=== PATIENT | female | born 1990 | race Caucasian/White ===

== ENCOUNTER → 2017-06-25 | Outpatient (CLI) | payer OTHER ==
[~2017-06-25] MED LIST: PRLSR20 PO
== END | disposition home or self-care (01) ==
LOC: C.PAPS 08:16
PROVIDERS: ATTEND Physician Assistant
DX: Z12.4 Encounter for screening for malignant neoplasm of cervix (principal); R87.612 Low grade squamous intraepithelial lesion on cytologic smear of cervix (LGSIL)

== ENCOUNTER → 2017-06-25 | Outpatient (CLI) | payer OTHER ==
[2017-06-28 14:28] LABS: CHLAMYDIA TRACH RNA*** NOT DETECTED (NOT DETECTED); GC (NEIS GONORRHOEAE)RNA** NOT DETECTED (NOT DETECTED)
== END | disposition home or self-care (01) ==
LOC: C.LABSPEC 17:42
PROVIDERS: ATTEND Physician Assistant
DX: Z12.4 Encounter for screening for malignant neoplasm of cervix (principal); N89.8 Other specified noninflammatory disorders of vagina

== ENCOUNTER → 2017-07-09 | Outpatient (CLI) | payer OTHER | END | disposition home or self-care (01) | LOC: C.PATHSPEC 17:35 | PROVIDERS: ATTEND Obstetrics & Gynecology | DX: R87.612 Low grade squamous intraepithelial lesion on cytologic smear of cervix (LGSIL) (principal) ==

== ENCOUNTER → 2017-08-27 | Outpatient (CLI) | payer OTHER ==
[2017-08-27 13:41] LABS: BASO % 0.6 %; BASO ABS # 0.03 K/uL (0-0.2); COMPLETE YES; EOS % 2.4 %; HEMATOCRIT 41.2 % (37-47); IG% 0.2 %; LYMPH % 33.2 %; LYMPH ABS # 1.67 K/uL (1.2-3.4); MEAN CELL VOLUME 94.1 fL (80-100); MEAN CORPUSCULAR HEMOGLOBIN 31.1 pg (25-34); MEAN PLATELET VOLUME 9.8 fL (7.4-10.4); NEUT % 55.6 %; PLATELET COUNT 280 K/uL (130-400); RED BLOOD COUNT 4.38 M/uL (4.2-5.4); WHITE BLOOD COUNT 5.03 K/uL (4.8-10.8)
[2017-08-27 14:15] LABS: ALB/GLOB RATIO 1.4 (0.9-2); ALKALINE PHOSPHATASE 55 U/L (45-117); ALT/SGPT 12 U/L (12-78); AST/SGOT 10 U/L (15-37); BLOOD UREA NITROGEN 6 mg/dl (7-18); BUN/CREATININE RATIO 8.6 (10-20); CALCIUM 8.9 mg/dl (8.5-10.1); CARBON DIOXIDE 30 mmol/L (21-32); CHLORIDE 106 mmol/L (98-107); GLUCOSE 95 mg/dl (70-99); POTASSIUM 4.2 mmol/L (3.5-5.1); SODIUM 139 mmol/L (136-145)
[2017-08-27 14:23] LABS: THYROID STIMULATING HORMONE 0.663 uIu/ml (0.300-4.500)
== END | disposition home or self-care (01) ==
LOC: C.LABBC 11:33
PROVIDERS: ATTEND Physician Assistant
DX: F41.9 Anxiety disorder, unspecified (principal)

== ENCOUNTER → 2017-11-10 | Outpatient (CLI) | payer OTHER ==
[2017-11-12 01:27] LABS: CHLAMYDIA TRACH RNA*** NOT DETECTED (NOT DETECTED); GC (NEIS GONORRHOEAE)RNA** NOT DETECTED (NOT DETECTED)
== END | disposition home or self-care (01) ==
LOC: C.LABSPEC 13:27
PROVIDERS: ATTEND Physician Assistant
DX: N89.8 Other specified noninflammatory disorders of vagina (principal)

== ENCOUNTER 2019-06-06 13:56 | Inpatient (IN) ==
[2019-06-06] MEDS ORDERED: OXYTOCIN 30 UNITS/500 ML BAG IV PRN ×2 (14:52→16:33)
--- NOTE | 2019-06-06 14:52 | History & Physical Report ---
Date of Service June 06, 2019 Assessment & Plan (1) Prolonged : admit, early labor, will arom. plan epidural and then arom as pt desires pain control. aware may need pit augmentation. labs, iv. History of Present Illness Chief Complaint: regular ctx Primary Care Provider: Kenan Gray MD 28yo at 40+wks egclarence presents to L&D with above cc. She went to office and around 130pm was noted to be 1.5cm/90% effaced by Dr. Rueda exam. Patient says she has had ctx for days and feels unwell that has not kept hydrated. She hasn't had any sleep. No rom. No vb. +FM pnc c/b 1. LGSIL on pap, colpo pp 2. CF carrier, FOB not carrier pnl rh pos, ri, gbs neg obh: g1 gynh: LGSIL, refused pap in preg, plan for pp, prior colpo in 2017, no stds pmh: esophagus dilation x 2 psh: endoscopy, wisdom teeth Allergies Allergy/AdvReac Type Severity Reaction Status Date / Time amoxicillin Allergy Unknown throat Verified 06/06/19 14:32 swelled clavulanic acid Allergy Unknown throat Verified 06/06/19 14:32 swelled Home Medications Home Medications Medication Instructions Recorded Confirmed Type vit-iron fum-folic ac 1 tab PO DAILY 06/05/19 06/06/19 History [ Vitamin] Patient History Social History Preferred Language: Japanese Communication Ability: Effective Inspector Packer Required: No Beliefs That Will Affect Care: None marital status: Single Current Living Situation: Significant Other Other Information That Helps Us Care for You: No Feels Safe at Home: Yes Safety Concerns: Feels Safe At This Time Smoking Status: Never smoker Second Hand Exposure: No Hx Alcohol Use: No Hx Substance Use: No Physical Exam Constitutional: WD/WN, vitals as above Respiratory: normal respiratory effort, lungs clear to auscultation Cardiovascular: Rate/Rhythm: regular rate and regular rhythm Gastrointestinal (Abdomen): gravid nt, efw 7-8# Musculoskeletal: nt calves, no edema Neurologic: grossly normal Genitourinary: Manual OB Exam: + cervical dilation 3 cm, + cervical effacement 90%, + station -2 and + amniotic fluid (intact) OB Exam Monitor Tracing: + external FHT monitor used (130 mod variability, reactive, ) and + external uterine monitor used (q2-3) Results & Data Vital Signs (Past 12 Hours) Vital Signs Temp Pulse Resp BP 06/06/19 14:09 36.4 C L 20 06/06/19 14:05 82 131/90
[2019-06-06] MEDS: LACTATED RINGER'S 1,000 ML IV PRN ×3 (15:04→20:10)
[2019-06-06 15:20] LABS: Hematocrit (blood only) 40.6 % (37-47); Hemoglobin 13.4 g/dL (12.0-16.0); Mean Corpuscular Volume 84.2 fL (80-100); Mean Platelet Volume 10.7 fL (7.4-10.4); Platelet Count 271 K/uL (130-400); RDW Coefficient of Variation 14.1 % (11.5-14.5); RDW Standard Deviation 43.4 fL (36.4-46.3); Red Blood Count 4.82 M/uL (4.2-5.4); White Blood Count 19.37 K/uL (4.8-10.8)
[2019-06-06] MEDS ORDERED: BUPIVACAINE 0.25% 30 ML VIAL ONE (15:20)
[2019-06-06] MEDS ORDERED: ePHEDrine sulfate 50 MG/ML AMP ONE (15:21)
[2019-06-06] MEDS ORDERED: fentaNYL citrate 100 MCG/2 ML VIAL ONE (15:21)
[2019-06-06] MEDS ORDERED: fentaNYL 2MCG/ML ROPIV 1.25MG/ML 100 ML BAG EPI ONE (15:22)
--- NOTE | 2019-06-06 15:32 | Anesthesiology Consultation ---
Date of Service June 06, 2019 Assessment & Plan (1) Encounter for pre-operative examination: Chart Review Chart Review: Acceptable Risk for Surgery Consults Requested none ASA ASA2 Proposed Anesthesia Anesthesia Type: CSE History Height/Weight Height: 5 ft 7 in Weight: 73.028 kg Allergies Allergy/AdvReac Type Severity Reaction Status Date / Time amoxicillin Allergy Unknown throat Verified 06/06/19 14:32 swelled clavulanic acid Allergy Unknown throat Verified 06/06/19 14:32 swelled Medications Home Medications Medication Instructions Recorded Confirmed Last Taken vit-iron fum-folic ac 1 tab PO DAILY 06/06/19 06/06/19 06/04/19 08:00 [ Vitamin] Active Medications Generic Name Dose Route Start Last Admin Trade Name Freq PRN Reason Stop Dose Admin Lactated Ringer's 1,000 mls @ 125 mls/hr 06/06/19 14:52 06/06/19 15:04 Lr IV 06/08/19 14:51 999 mls/hr .Q8H PRN Administration L&D Protocol Protocol Past Medical History Medical History GERD (gastroesophageal reflux disease) DILATED X 2 History of abnormal cervical Pap smear LGSIL - COLPO 2016 Past Surgical History Surgical History History of colposcopy Social History Smoking Status: Never smoker Hx Alcohol Use: No Hx Substance Use: No substance use type: does not use Physical Exam Vital Signs Last Vital Signs Temp 36.4 C L 06/06/19 14:09 Pulse 82 06/06/19 14:05 Resp 20 06/06/19 14:09 BP 131/90 06/06/19 14:05 ENMT Mouth: no TMJ abnormality Thyromental Distance: > or= 3.5 Finger Breadths Mallampati Class: III intact dentition Neck normal visual inspection and trachea midline; neck extension not limited Respiratory normal respiratory effort Auscultation: lungs clear to auscultation bilaterally Cardiovascular Rate/Rhythm: regular rate and regular rhythm Heart Sounds: no murmur Musculoskeletal Spine: normal cervical ROM Extremities: full ROM of extremities Neurologic moves all extremities Motor/Sensory: no sensory deficit Psychiatric Orientation: alert and oriented x 3 Testing Laboratory Results 06/06/19 15:03
[2019-06-06] MEDS ORDERED: METOCLOPRAMIDE HCL 20 MG in SODIUM CHLORIDE 0.9% 50 ML IV PRN (15:55)
[2019-06-06] MEDS ORDERED: DiphenhydrAMINE HCL 50 MG/ML VIAL IV PRN (15:55)
[2019-06-06] MEDS ORDERED: PROMETHAZINE HCL 25 MG in SODIUM CHLORIDE 0.9% 50 ML IV PRN (15:55)
[2019-06-06] MEDS ORDERED: fentaNYL 2MCG/ML ROPIV 1.25MG/ML 100 ML BAG EPI PRN (15:55)
[2019-06-06] MEDS ORDERED: ePHEDrine sulfate 50 MG/ML AMP IV PRN (15:55)
[2019-06-06] MEDS ORDERED: NALOXONE HCL 1 MG in SODIUM CHLORIDE 0.9% 1000ML 1,000 ML IV PRN (15:55)
[2019-06-06] MEDS ORDERED: NALBUPHINE HCL INJ 10 MG/ML AMP IV PRN (15:55)
[2019-06-06] MEDS ORDERED: NALOXONE HCL 0.4 MG/1 ML VIAL/CARP IV PRN (15:55)
[2019-06-06] MEDS ORDERED: ONDANSETRON INJ 2 MG/ML 2 ML VIAL IV PRN (15:55)
--- NOTE | 2019-06-06 16:35 | Obstetrical Progress Note ---
Date of Service June 06, 2019 Assessment & Plan (1) Prolonged : will see how arom augments pattern. add pit if ctx do not become more regular. pt aware, meconium stained fluid reviewed. Subjective comfortable with epidural. Physical Exam Constitutional: WD/WN, vitals as above Genitourinary: Manual OB Exam: + cervical dilation 3 cm, + cervical effacement 90% and + station -2 OB Exam Monitor Tracing: + external FHT monitor used (140 mod variability) and + external uterine monitor used (q4) Results & Data Vital Signs (Past 12 Hours) Vital Signs Temp Pulse Resp BP Pulse Ox 06/06/19 16:31 66 99 06/06/19 16:26 60 97 06/06/19 16:23 62 115/72 06/06/19 16:21 59 L 97 06/06/19 16:16 76 98 06/06/19 16:11 73 98 06/06/19 16:06 76 98 06/06/19 16:03 78 123/81 06/06/19 16:01 79 119/82 98 06/06/19 15:59 74 119/83 06/06/19 15:57 73 114/78 06/06/19 15:56 72 99 06/06/19 15:55 82 117/84 06/06/19 15:53 79 124/82 06/06/19 15:51 80 119/82 99 06/06/19 15:50 90 117/88 06/06/19 15:46 89 100 06/06/19 15:41 95 H 99 06/06/19 15:36 84 100 06/06/19 15:31 83 100 06/06/19 14:09 36.4 C L 20 06/06/19 14:05 82 131/90
--- NOTE | 2019-06-06 19:52 | Obstetrical Progress Note ---
Date of Service June 06, 2019 Assessment & Plan (1) Prolonged : good cx change, c/w pit, fhts categ 1 Subjective comfortable with epidural. Physical Exam Constitutional: WD/WN, vitals as above Genitourinary: Manual OB Exam: + cervical dilation 7 cm, + cervical effacement 100% and + station 0 OB Exam Monitor Tracing: + external FHT monitor used (140 mod variability, ), + external uterine monitor used (q2-3 pit at 5), + category I and + normal FHT variability Results & Data Vital Signs (Past 12 Hours) Vital Signs Temp Pulse Resp BP Pulse Ox 06/06/19 19:46 64 100 06/06/19 19:41 82 100 06/06/19 19:39 70 123/67 06/06/19 19:36 69 99 06/06/19 19:31 83 100 06/06/19 19:26 71 98 06/06/19 19:22 66 116/76 06/06/19 19:21 70 98 06/06/19 19:16 65 98 06/06/19 19:11 67 97 06/06/19 19:08 79 122/72 06/06/19 19:06 91 H 99 06/06/19 19:05 37.0 C 18 06/06/19 19:01 70 98 06/06/19 18:56 63 97 06/06/19 18:52 66 110/72 06/06/19 18:51 67 97 06/06/19 18:46 61 97 06/06/19 18:41 63 97 06/06/19 18:38 67 112/74 06/06/19 18:36 64 97 06/06/19 18:31 79 97 06/06/19 18:26 68 97 06/06/19 18:22 70 108/80 06/06/19 18:21 63 97 06/06/19 18:16 70 97 06/06/19 18:15 18 06/06/19 18:11 67 98 06/06/19 18:07 65 115/75 06/06/19 18:06 66 98 06/06/19 18:01 69 99 06/06/19 18:00 20 06/06/19 17:56 69 113/63 99 06/06/19 17:51 66 98 06/06/19 17:46 60 97 06/06/19 17:45 18 06/06/19 17:41 63 98 06/06/19 17:37 62 113/76 06/06/19 17:36 68 99 06/06/19 17:31 64 98 06/06/19 17:30 20 06/06/19 17:26 62 98 06/06/19 17:22 62 117/78 06/06/19 17:21 63 99 06/06/19 17:16 72 99 06/06/19 17:15 18 06/06/19 17:11 75 98 06/06/19 17:07 58 L 122/81 06/06/19 17:06 61 99 06/06/19 17:01 63 100 06/06/19 17:00 18 06/06/19 16:56 64 99 06/06/19 16:53 62 119/77 06/06/19 16:51 65 98 06/06/19 16:46 62 98 06/06/19 16:45 20 06/06/19 16:41 66 98 06/06/19 16:37 61 110/72 06/06/19 16:36 63 99 06/06/19 16:31 66 99 06/06/19 16:30 20 06/06/19 16:26 60 97 06/06/19 16:23 62 115/72 06/06/19 16:21 59 L 97 06/06/19 16:16 76 98 06/06/19 16:15 20 06/06/19 16:11 73 98 06/06/19 16:06 76 20 98 06/06/19 16:03 78 123/81 06/06/19 16:01 79 119/82 98 06/06/19 15:59 74 119/83 06/06/19 15:57 73 114/78 06/06/19 15:56 72 99 06/06/19 15:55 82 117/84 06/06/19 15:53 79 124/82 06/06/19 15:51 80 119/82 99 06/06/19 15:50 90 117/88 06/06/19 15:46 89 100 06/06/19 15:41 95 H 99 06/06/19 15:36 84 100 06/06/19 15:31 83 100 06/06/19 14:09 36.4 C L 20 06/06/19 14:05 82 131/90
[2019-06-07] MEDS ORDERED: METHYLERGONOVINE MALEATE 0.2 MG/ML AMP ONE (00:38)
[2019-06-07] MEDS ORDERED: TRANEXAMIC ACID 100 MG/ML 10 ML VIAL ONE (00:38)
[2019-06-07] MEDS ORDERED: BENZOCAINE 20% AER SPR 82.5 GM CAN EXT PRN (00:52)
[2019-06-07] MEDS ORDERED: HYDROCORTISONE ACETATE 25 MG SUPP PR PRN (00:52)
[2019-06-07] MEDS ORDERED: OXYTOCIN 30 UNITS/500 ML BAG IV PRN (00:52)
[2019-06-07] MEDS ORDERED: METHYLERGONOVINE MALEATE 0.2 MG/ML AMP IM ONE (00:52)
[2019-06-07] MEDS ORDERED: SUPERCREAM 0.870% 15 GM JAR EXT PRN (00:52)
[2019-06-07] MEDS ORDERED: ACETAMINOPHEN 325 MG TAB PO PRN (00:52)
[2019-06-07] MEDS ORDERED: OXYCODONE/ACETAMINOPHEN 5mg/325mg TAB PO PRN (00:52)
[2019-06-07] MEDS ORDERED: miSOPROStol 200 MCG TAB PR ONE (00:52)
--- NOTE | 2019-06-07 01:01 | Delivery Summary ---
DATE OF OPERATION: 06/07/2019 The patient dilated to complete and pushed to deliver a viable male , Apgars 8 and 9 via over intact perineum. Mouth and nose were suctioned at the perineum. The shoulders and body delivered with ease. The was vigorous and cried at . Cord clamped at 30 seconds of life and infant to maternal abdomen. Cord was then doubly clamped and cut. Cord blood obtained. Placenta delivered spontaneously and intact, 3-vessel cord. Hemostasis inadequate with dilute Pitocin and uterine massage and bimanual massage, uterus swept x2 with no retained products noted. The bladder was drained under sterile conditions for approximately 120 mL of urine. The bleeding continued and therefore 800 mcg of rectal Cytotec was administered followed by 0.2 IM of Methergine after the blood pressure was checked. The uterus again was not well contracted and therefore tranexamic acid 1 g was administered. The uterine bleeding improved. The cervix and sulci were intact. Two labial lacerations and a vaginal laceration were repaired with 3-0 and 4-0 Vicryl in interrupted [id number] sutures. Hemostasis was then adequate. Mother and baby were stable in recovery. Estimated blood loss 600 mL. I attest to the content of the Intraoperative Record and any orders documented therein. Any exceptions are noted below. MTDD
[2019-06-07] MEDS: IBUPROFEN 600 MG TAB PO PRN ×5 (02:36→20:08)
--- NOTE | 2019-06-07 03:40 | Anesthesia Procedure Note ---
Date of Service June 07, 2019 Anesthesia Post Epidural Note Vital Signs Vital Signs: Temp Pulse Resp BP Pulse Ox 39.0 C H 81 18 116/70 97 06/07/19 02:30 06/07/19 02:53 06/07/19 02:22 06/07/19 02:53 06/07/19 01:46 Notes Mental Status: alert / awake / arousable Nausea / Vomiting: adequately controlled Pain: adequately controlled Airway Patency, RR, SpO2: stable & adequate BP & HR: stable & adequate Hydration State: stable & adequate Neuraxial Anesthesia: was administered and sensory block is resolving Anesthetic Complications: no major complications apparent and Pt Satisfied with anesthetic care Epidural: Removed without complications and With tip intact
[2019-06-07] MEDS ORDERED: TRANEXAMIC ACID 1,000 MG in 0.9 % SODIUM CHLORIDE 100 ML IV ONE (06:30)
[2019-06-07 08:21] LABS: Hematocrit (blood only) 32.1 % (37-47); Hemoglobin 10.4 g/dL (12.0-16.0)
[2019-06-07] MEDS: DOCUSATE SODIUM 100 MG CAP PO SCH ×2 (08:49→20:08)
[2019-06-08 05:32] LABS: Hematocrit (blood only) 29.9 % (37-47); Hemoglobin 9.6 g/dL (12.0-16.0)
--- NOTE | 2019-06-08 06:01 | Obstetrical Progress Note ---
Date of Service <Leandro Singer MD - Last Filed: 06/08/19 07:04> June 08, 2019 Assessment & Plan <Leandro Singer MD - Last Filed: 06/08/19 07:04> Day #:: 1 (28-year-old status post vaginal delivery at 40+6 - Rh immune, Blood Type O+ - Feels well today. Eating well, voiding well, ambulating well. - Pain well controlled with Motrin. - After discharge will have [address] Welsh.) Subjective <Leandro Singer MD - Last Filed: 06/08/19 07:04> Ambulation: ambulating normally Voiding: no voiding problems Passing Gas:: Yes Diet Tolerance:: regular diet Lochia:: Moderate (soaking through a pad every two hours, worse when standing up, overall seems to be improving) Feeding Type:: breast feeding Current Pain Level(1-10): 2 (controlled with Motrin) Physical Exam <Leandro Singer MD - Last Filed: 06/08/19 07:04> OB PE General: Alert, oriented. No acute distress. Cardiac: Regular rate and rhythm, no murmurs/rubs/gallops. Respiratory: Clear to auscultation anterior and posteriorly, no wheezes/rales/rhonchi. No increased work of breathing. Symmetrical chest rise. No respiratory distress. Abdomen: Soft, nontender, nondistended. Bowel sounds present. Uterus: Uterine fundus firm, palpable 1 cm below umbilicus. Lower Extremities: No lower extremity edema or swelling. No deep calf pain. Rustam's negative bilaterally. OB ROS Denies fever, sweats felt cold and shaky overnight Denies shortness of breath, difficulty breathing, chest pain, palpitations, chest pressure. Denies breast pain. Denies dysuria. Denies headache. Results & Data <Leandro Singer MD - Last Filed: 06/08/19 07:04> Vital Signs (Past 12 Hours) Vital Signs Temp Pulse Resp BP 06/07/19 23:15 36.5 C 84 18 104/71 06/07/19 19:55 36.8 C 70 18 100/68 Hgb 9.6 <Danial Gale Jr, MD, FACOG - Last Filed: 06/08/19 07:11> Co-Signing Physician Notes Resident Physician Supervision Note: I was present with Dr. Sherman during the history and exam. I discussed the case with the resident and agree with the findings and plan as documented in the note. Any exceptions or clarifications are listed here: Patient hemodynamically stable. Pt desires d/c, instructions given. Documented By: Danial Gale Jr, MD, FACOG
[2019-06-08] MEDS: DOCUSATE SODIUM 100 MG CAP PO SCH ×2 (07:59→21:41)
[2019-06-08] MEDS: IBUPROFEN 600 MG TAB PO PRN ×2 (07:59→15:48)
[2019-06-08] MEDS ORDERED: DIPHTHERIA/TETANUS/PERTUSSIS 0.5 ML SYR/VIAL IM ONE (09:00)
--- NOTE | 2019-06-09 05:17 | Obstetrical Progress Note ---
Date of Service <Leandro Singer MD - Last Filed: 06/09/19 06:47> June 09, 2019 Assessment & Plan <Leandro Singer MD - Last Filed: 06/09/19 06:47> Day #:: 2 ([28-year-old s/p VD @40+6] -PPD2# -with post bleeding [id number], H&H stable - Rubella immune, Blood Type O+ - Feels well today. Eating well, voiding well, ambulating well. - Pain well controlled. - Routine post care - After discharge will have [address] Park.) Subjective <Leandro Singer MD - Last Filed: 06/09/19 06:47> Ambulation: ambulating normally Voiding: no voiding problems Passing Gas:: Yes Diet Tolerance:: regular diet Lochia:: Small Feeding Type:: breast feeding Current Pain Level(1-10): 0 Physical Exam <Leandro Singer MD - Last Filed: 06/09/19 06:47> OB PE General: Alert, oriented. No acute distress. Cardiac: Regular rate and rhythm, no murmurs/rubs/gallops. Respiratory: Clear to auscultation anterior and posteriorly, no wheezes/rales/rhonchi. No increased work of breathing. Symmetrical chest rise. No respiratory distress. Abdomen: Soft, nontender, nondistended. Bowel sounds present. Uterus: Uterine fundus firm, palpable 2 cm below umbilicus. Lower Extremities: No lower extremity edema or swelling. No deep calf pain. Rustam's negative bilaterally. OB ROS Denies fever Denies shortness of breath, difficulty breathing, chest pain, palpitations, chest pressure. Denies breast pain. Denies dysuria. Denies headache. Results & Data <Leandro Singer MD - Last Filed: 06/09/19 06:47> Vital Signs (Past 12 Hours) Vital Signs Temp Pulse Resp BP Pulse Ox 06/08/19 23:20 36.8 C 105 H 18 113/75 98 <Adali Park DO - Last Filed: 06/09/19 07:03> Co-Signing Physician Notes Resident Physician Supervision Note: I was present during the history and exam. I discussed the case with the resident and agree with the findings and plan as documented in the note. Any exceptions or clarifications are listed here: PPD#2 doing well. DC home. Teaching done. Documented By: Adali Park, DO
[2019-06-09] MEDS: DOCUSATE SODIUM 100 MG CAP PO SCH (08:33)
== END 2019-06-09 11:15 | disposition home or self-care (01) | DRG 807 ==
LOC: OPB 13:56 → 4S1 13:58 → 4S2 06-07 03:15

== ENCOUNTER 2021-05-30 07:26 | Inpatient (IN) ==
[2021-05-30] MEDS ORDERED: OXYTOCIN 30 UNITS/500 ML BAG IV PRN ×3 (07:41→15:45)
[2021-05-30] MEDS: LACTATED RINGER'S 1,000 ML IV PRN ×2 (07:57→13:02)
[2021-05-30 08:29] LABS: Hematocrit (blood only) 37.3 % (37-47); Hemoglobin 11.6 g/dL (12.0-16.0); Mean Corpuscular Hemoglobin 26.6 pg (25-34); Mean Corpuscular Hgb Conc 31.1 g/dL (32-36); Mean Corpuscular Volume 85.6 fL (80-100); Mean Platelet Volume 9.9 fL (7.4-10.4); Platelet Count 276 K/uL (130-400); RDW Coefficient of Variation 17.6 % (11.5-14.5); RDW Standard Deviation 53.8 fL (36.4-46.3); Red Blood Count 4.36 M/uL (4.2-5.4); White Blood Count 7.86 K/uL (4.8-10.8)
--- NOTE | 2021-05-30 08:52 | History & Physical Report ---
Date of Service May 30, 2021 Assessment & Plan Admission and Anticipated Discharge Date Admission Date: May 30, 2021 History of Present Illness Primary Care Provider: Kenan Gray MD Allergies Allergy/AdvReac Type Severity Reaction Status Date / Time amoxicillin Allergy Unknown throat Verified 05/29/21 10:10 swelled clavulanic acid Allergy Unknown throat Verified 05/29/21 10:10 swelled cephalexin AdvReac Vomiting Verified 05/29/21 10:10 Home Medications Medication Instructions Recorded Confirmed Type prenat.vits,lisandra,[id number] 1 tab PO DAILY 09/26/20 05/30/21 History ferrous sulfate 325 mg (65 mg 325 mg PO DAILY 03/14/21 05/30/21 History iron) tablet,delayed release Patient History Medical History Cystic fibrosis carrier GERD (gastroesophageal reflux disease) DILATED X 2 History of abnormal cervical Pap smear LGSIL - COLPO 2016 History of chicken pox Vaginal tear resulting from childbirth Surgical History (Updated 09/26/20 @ 09:58 by Nimisha Mccall) History of colposcopy S/P endoscopy Family History (Updated 09/26/20 @ 10:01 by Nimisha Mccall) Mother Hypertension Denies family history of Ovarian cancer Breast cancer Colorectal cancer Social History Smoking Status: Never smoker Second Hand Exposure: No; Hx Alcohol Use: No Hx Substance Use: No Preferred Language: Persian Communication Ability: Effective Business Insurance Agent Required: No Beliefs That Will Affect Care: None marital status: Single marital status details: COSTA [place]brook [phone]) [phone] Current Living Situation: Family and Significant Other Current Living Situation Comment: lives with fob, son, dogs, cats-fob to change litter current occupational status: employed current occupation: [employer], food delivery Feels Safe at Home: Yes Assistive Devices: Contacts Results & Data ([facility]) Vital Signs (Past 12 Hours) Vital Signs Temp Pulse BP 05/30/21 07:58 36.7 C 84 115/76 05/30/21 07:48 84 115/76 Coding
[2021-05-30] MEDS ORDERED: SODIUM CHLORIDE 0.9% INJ 10 ML VIAL ONE (12:45)
[2021-05-30] MEDS ORDERED: ePHEDrine sulfate 50 MG/ML AMP ONE (12:45)
[2021-05-30] MEDS ORDERED: BUPIVACAINE 0.25% 30 ML VIAL ONE (12:45)
[2021-05-30] MEDS ORDERED: fentaNYL citrate 100 MCG/2 ML VIAL ONE (12:46)
[2021-05-30] MEDS ORDERED: fentaNYL 2MCG/ML ROPIVACAINE 1.25MG/ML 100 ML BAG EPI ONE (12:46)
--- NOTE | 2021-05-30 13:01 | Anesthesiology Consultation ---
Date of Service May 30, 2021 Assessment & Plan Chart Review Chart Review: Acceptable Risk for Surgery, Patient NOT seen in Pre Admission Testing and Acceptable Risk for Labor Epidural Consults Requested none ASA ASA2 Proposed Anesthesia Anesthesia Type: Labor Epidural and CSE Additional Comments: covid test negative History Height/Weight Height: 5 ft 7 in Weight: 73.482 kg Allergies Allergy/AdvReac Type Severity Reaction Status Date / Time amoxicillin Allergy Unknown throat Verified 05/29/21 10:10 swelled clavulanic acid Allergy Unknown throat Verified 05/29/21 10:10 swelled cephalexin AdvReac Vomiting Verified 05/29/21 10:10 Medications Home Medications Medication Instructions Recorded Confirmed Last Taken prenat.vits,lisandra,jdw-[id number] 1 tab PO DAILY 09/26/20 05/30/21 05/30/21 ferrous sulfate 325 mg (65 mg 325 mg PO DAILY 03/14/21 05/30/21 05/30/21 iron) tablet,delayed release Active Medications Generic Name Dose Route Start Last Admin Trade Name Freq PRN Reason Stop Dose Admin Lactated Ringer's 1,000 mls @ 125 mls/hr 05/30/21 07:41 05/30/21 12:47 Lr IV 06/01/21 07:40 999 mls/hr .Q8H PRN Infusion L&D Protocol Protocol Oxytocin 30 units in 500 mls @ 6 mls/hr 05/30/21 07:45 05/30/21 10:17 Pitocin IV 06/29/21 07:44 0.36 units/hr .Q24H PRN 6 mls/hr Labor Induction/Augmentation Titration Protocol 0.36 UNITS/HR Past Medical History Medical History Cystic fibrosis carrier GERD (gastroesophageal reflux disease) DILATED X 2 History of abnormal cervical Pap smear LGSIL - COLPO 2017 History of chicken pox Vaginal tear resulting from childbirth Exercise / Class Metabolic Activity II 4-5 Yardwork/Stairs/Walk up hill Past Family History Family History Mother Hypertension Denies family history of Ovarian cancer Breast cancer Colorectal cancer Past Surgical History Surgical History History of colposcopy S/P endoscopy Past Anesthesia History No Hx of Anesthesia Complications and No Family Hx of Anesthesia Complications History of PONV No Hx of PONV and No Hx of Motion Sickness Social History Smoking Status: Never smoker Hx Alcohol Use: No Hx Substance Use: No substance use type: does not use Physical Exam Vital Signs Last Vital Signs Temp 36.7 C 05/30/21 07:58 Pulse 79 05/30/21 11:48 Resp 18 05/30/21 11:00 BP 100/56 L 05/30/21 11:48 Testing Laboratory Results 05/30/21 07:56
[2021-05-30] MEDS ORDERED: NALOXONE HCL 1 MG in SODIUM CHLORIDE 0.9% 1000ML 1,000 ML IV PRN (13:35)
[2021-05-30] MEDS ORDERED: ONDANSETRON INJ 2 MG/ML 2 ML VIAL IV PRN (13:35)
[2021-05-30] MEDS ORDERED: fentaNYL 2MCG/ML ROPIVACAINE 1.25MG/ML 100 ML BAG EPI PRN (13:35)
[2021-05-30] MEDS ORDERED: ePHEDrine sulfate 50 MG/ML AMP IV PRN (13:35)
[2021-05-30] MEDS ORDERED: NALBUPHINE HCL INJ 10 MG/ML AMP IV PRN (13:35)
[2021-05-30] MEDS ORDERED: PROMETHAZINE HCL 25 MG in SODIUM CHLORIDE 0.9% 50 ML IV PRN (13:35)
[2021-05-30] MEDS ORDERED: NALOXONE HCL 0.4 MG/1 ML VIAL/CARP IV PRN (13:35)
[2021-05-30] MEDS ORDERED: diphenhydrAMINE 50 MG/ML VIAL IV PRN (13:35)
[2021-05-30] MEDS ORDERED: HYDROCORTISONE ACETATE 25 MG SUPP PR PRN (15:45)
[2021-05-30] MEDS ORDERED: SUPERCREAM 0.870% 15 GM JAR EXT PRN (15:45)
[2021-05-30] MEDS ORDERED: BENZOCAINE 20% AER SPR 82.5 GM CAN EXT PRN (15:45)
[2021-05-30] MEDS ORDERED: bisacodyL 10 MG SUPP PR PRN (15:45)
[2021-05-30] MEDS ORDERED: ACETAMINOPHEN 325 MG TAB PO PRN (15:45)
[2021-05-30] MEDS ORDERED: DIPHTHERIA/TETANUS/PERTUSSIS 0.5 ML SYR/VIAL IM ONE (15:45)
[2021-05-30] MEDS ORDERED: miSOPROStoL 200 MCG TAB ONE (16:32)
--- NOTE | 2021-05-30 17:15 | Anesthesia Procedure Note ---
Date of Service May 30, 2021 Anesthesia Post Epidural Note Vital Signs Vital Signs: Temp Pulse Resp BP Pulse Ox 36.5 C 83 18 131/57 L 99 05/30/21 13:53 05/30/21 17:06 05/30/21 16:36 05/30/21 17:06 05/30/21 15:44 Notes Mental Status: alert / awake / arousable Nausea / Vomiting: adequately controlled Pain: adequately controlled Airway Patency, RR, SpO2: stable & adequate BP & HR: stable & adequate Hydration State: stable & adequate Neuraxial Anesthesia: was administered and sensory block is resolving Anesthetic Complications: no major complications apparent Epidural: Removed without complications and With tip intact
[2021-05-30] MEDS: IBUPROFEN 600 MG TAB PO PRN (19:05)
--- NOTE | 2021-05-30 20:31 | Delivery Summary ---
DATE OF PROCEDURE: 05/30/2021 PROCEDURE: Normal spontaneous vaginal delivery. SURGEON: Live Latham MD. PREOPERATIVE DIAGNOSIS: Single intrauterine at 41 weeks 2 days gestational age. POSTOPERATIVE DIAGNOSIS: Single intrauterine at 41 weeks 2 days gestational age, status po st procedure. ESTIMATED BLOOD LOSS: 400 mL. DRAINS: Straight cath at the completion of the case. URINE OUTPUT: Approximately 200 mL per straight cath. COMPLICATIONS: None. FINDINGS: Viable infant with weight and Apgars pending. INDICATIONS: Flora is a 30-year-old G2, P1, admitted at 41 weeks 1 day gestational age for induction of labor for late-term . The patient was started on oxytocin per regular protocol. She un derwent artificial rupture of membranes for clear fluid and progressed in labor to complete-complete +1 station, at which time she felt the urge to push. The patient pushed for approximately 4 contract ions to achieve delivery. DESCRIPTION OF PROCEDURE: The patient progressed to 10 cm dilated, 100% effaced, positive 1 station, pushed over intact perineum with epidural anesthesia, delivered a viable infant with weight and Apga rs as noted above. Head of the delivered in JACEK position, restituted to left transverse. A single nuchal cord was noted, which was easily reduced, body and shoulders quickly followed. was noted to be vigorous upon delivery and a 1 minute delayed cord clamping was initiated. Cord was then double clamped and cut. remained on the maternal abdomen, was noted to be vigorous. C ord blood was obtained. Attention was then turned to delivery of placenta, which was delivered intac t, 3-vessel cord, gentle cord traction. On inspection of the perineum, vagina, cervix, there was not ed to be no lacerations. The patient was noted to have a history of hemorrhage and theref ore, 800 mcg of Cytotec were placed per rectum as bleeding prophylaxis. The patient was noted to hav e a firm uterus well below the umbilicus at the completion of the case. Both mother and were stable in the immediate post-delivery period. Sponge and instrument counts were correct at the comp letion of the case. Job ID: [id number]
[2021-05-30] MEDS: DOCUSATE SODIUM 100 MG CAP PO SCH (21:54)
[2021-05-31] MEDS: IBUPROFEN 600 MG TAB PO PRN ×2 (03:57→08:32)
[2021-05-31 07:05] LABS: Hematocrit (blood only) 37.5 % (37-47); Hemoglobin 11.6 g/dL (12.0-16.0)
--- NOTE | 2021-05-31 07:42 | Obstetrical Progress Note ---
Date of Service May 31, 2021 Assessment & Plan (1) Encounter for care and examination after delivery: 30yo day 1 s/p . Doing well. Stable for discharge. - Subjective Ambulation: ambulating normally Voiding: no voiding problems Passing Gas:: Yes Diet Tolerance:: regular diet Lochia:: Moderate Physical Exam Constitutional WD/WN, vitals as above Respiratory normal respiratory effort; no respiratory distress and no labored breathing Gastrointestinal (Abdomen) Inspection/Auscultation: abdomen normal to inspection; abdomen not distended Percussion/Palpation: abdomen soft; abdomen nontender, no guarding and abdomen not rigid Genitourinary OB Exam Abdomen: + fundal height Fundus: + firm and + relation to umbilicus (Below); not tender and not boggy Results & Data ([facility]) Vital Signs (Past 12 Hours) Vital Signs Temp Pulse Resp BP Pulse Ox 05/31/21 04:30 36.4 C L 68 18 107/71 97 05/30/21 23:30 36.6 C 84 18 98/61 L 99
[2021-05-31] MEDS ORDERED: FERROUS SULFATE 325 MG TAB PO SCH (08:00)
[2021-05-31] MEDS ORDERED: PRENATAL VITAMIN 1 TAB PO SCH (08:00)
[2021-05-31] MEDS: DOCUSATE SODIUM 100 MG CAP PO SCH (08:32)
[2021-05-31] MEDS ORDERED: bisacodyL 5 MG TABEC PO SCH (20:00)
== END 2021-05-31 16:25 | disposition home or self-care (01) | DRG 807 ==
LOC: 4S1 07:26 → 4S2 19:03

== ENCOUNTER 2023-03-13 07:37 | Inpatient (IN) ==
[2023-03-13] MEDS ORDERED: LIDOCAINE 1% LOCAL 20 ML VIAL INFIL PRN (07:47)
[2023-03-13] MEDS ORDERED: OXYTOCIN 30 UNITS/500 ML BAG IV PRN ×3 (07:47→15:32)
[2023-03-13 08:24] LABS: Hematocrit (blood only) 36.9 % (37.0-47.0); Hemoglobin 11.3 g/dl (12.0-16.0); Mean Corpuscular Hemoglobin 24.2 pg (25.0-34.0); Mean Corpuscular Hgb Conc 30.6 g/dL (32.0-36.0); Mean Platelet Volume 10.5 fL (9.4-12.4); Platelet Count 284 K/uL (130-400); RDW Coefficient of Variation 20.2 % (11.5-14.5); RDW Standard Deviation 55.1 fL (36.4-46.3); Red Blood Count 4.67 M/uL (4.20-5.40); White Blood Count 7.74 K/ul (4.8-10.8)
[2023-03-13] MEDS: LACTATED RINGER'S 1,000 ML IV PRN ×2 (08:31→14:16)
--- NOTE | 2023-03-13 08:52 | History & Physical Report ---
Date of Service March 13, 2023 Assessment & Plan (1) Supervision of normal intrauterine in multigravida: (2) Encounter for care and examination after delivery: (3) LGSIL on Pap smear of cervix: Plan Flora is a 32 y/o female at 41w3d GA who presents today for post-dates induction of labor. -Plan to proceed with induction of labor. Will start Pitocin -O+/GBS negative/Rubella immune -4/75%/-2, fetus cat 1 -Patient can receive epidural if desired Admission and Anticipated Discharge Date Admission Date: March 13, 2023 History of Present Illness Primary Care Provider: Kenan Gray MD Flora is a 32 y/o female at 41w3d GA who presents today for post-dates induction of labor. She is a known CF carrier, but FOB is negative. She is feeling well, denies any loss of fluid or bleeding. + movement. She desires proceeding with induction of labor. Does note some nausea this morning. [employer] History -History of abnormal PAP- LGSIL/+HPV on PAP 03/14. Colpo in 2nd trimester TRA 1 -No known history of prior STDs Del. Date GA wks Lbr Lgth wt Sex Type del Anes Place Del Prov ? Comment 06/07/19 41 24 8-11 M Epid al [facility] Dr. [place] No 05/30/21 41 8lb 4oz F [facility] [place] No OB Labs: Blood Type O Positive 08/13/22 Antibody Screen NEGATIVE 08/13/22 Hemoglobin 10.5 g/dl (12.0-16.0) L 12/18/22 Hematocrit 32.9 % (37.0-47.0) L 12/18/22 Mean Corpuscular Volume 89.7 fL (80.0-100.0) 09/05/22 Platelet Count 311 K/uL (130-400) 09/05/22 Rubella IgG Antibody Immune (Immune) 08/13/22 Rapid Plasma Reagin Nonreactive (Nonreactive) 08/13/22 Hepatitis B Surface Antigen Neg (Neg) 11/08/20 Hepatitis C Antibody (EIA) NON-REACTIVE (NON-REACTIVE) 08/13/22 HIV (1&2) Ab and P24 Ag, 4th Gener Neg (Neg) 11/08/20 HIV (1&2) Ag and Ab Confirmation NON-REACTIVE (NON-REACTIVE) 08/13/22 Glucose 1 Hour 50 gm Load 94 mg/dl (70-130) 12/18/22 OB Optional Labs: Chlamydia trachomatis RNA Not Detected (NotDetected) 08/13/22 Neisseria gonorrhoeae RNA Not Detected (NotDetected) 08/13/22 Thyroid Stimulating Hormone (TSH) 0.663 uIu/ml (0.300-4.500) 08/27/17 Labs Reviewed: Pt Carrier of CF - FOB negative (11/13/18) cfdna-low risk--mln declines msafp--smp gbs neg--akh Allergies Allergy/AdvReac Type Severity Reaction Status Date / Time No Known Allergies Allergy Verified 03/12/23 12:57 Home Medications Medication Instructions Recorded Confirmed Type prenat.vits,lisandra,[id number] 1 tab PO DAILY 08/07/22 03/13/23 History omeprazole 40 mg capsule,delayed 40 mg PO DAILY 09/05/22 03/13/23 History release ferrous sulfate 325 mg (65 mg 325 mg PO DAILY 03/13/23 03/13/23 History iron) tablet (Iron (ferrous sulfate)) Patient History Medical History Cystic fibrosis carrier GERD (gastroesophageal reflux disease) History of abnormal cervical Pap smear LGSIL - COLPO 2016 History of anemia DURING Mother currently breast-feeding PT CONFIRMS Temporomandibular joint disorder SOMETIMES CLICKS-NO LOCKING Tinnitus Surgical History History of colposcopy History of esophagogastroduodenoscopy (EGD) [place] teeth removed Family History Mother Hypertension Other No family history of adverse response to anesthesia Denies family history of Ovarian cancer Breast cancer Colorectal cancer Social History Smoking Status: Never smoker Second Hand Exposure: No; Hx Alcohol Use: No Hx Substance Use: No Preferred Language: Greenlandic Communication Ability: Effective Community Product Specialist Required: No Beliefs That Will Affect Care: None marital status: Single marital status details: FOB: Александр (33) [phone] Current Living Situation: Significant Other Current Living Situation Comment: Lives at home with FOB and 2 children. current occupational status: employed current occupation: [employer], Other Information That Helps Us Care for You: No Feels Safe at Home: Yes Assistive Devices: None Review of Systems As per above Physical Exam Constitutional: WD/WN, vitals as above Eyes: Anicteric sclera ENMT: External ears and nose normal. Respiratory: No increased respiratory effort. No cough. Cardiovascular: Regular heart rate. No lower extremity edema. Skin: no rashes, warm and dry Psychiatric: A+Ox3, euthymic affect Genitourinary: Manual OB Exam: + cervical dilation 4 cm, + cervical effacement (75%) and + station -2 OB Exam Monitor Tracing: + external FHT monitor used and + category I Results & Data Vital Signs (Past 12 Hours) Vital Signs Pulse BP 03/13/23 08:14 79 100/69 Supervising Physician Co-Signing Physician Notes Resident Physician Supervision Note: I interviewed and examined the patient. Discussed with Dr. Velazquez and agree with findings and plan as documented in the note. Any exceptions or clarificatio ns are listed here: with x 2 at 41 3/7 weeks who presents to labor and delivery for postdates induction. Uncomplicated . cx--4/80/-2, rare contractions, fetus category one. Plan pitocin induction, epidural on demand, arom as indicated. Anticipate . Documented By: Nati Rueda MD, FACOG Resident Activity Tracking Resident Involvement: Resident Care Provided Care Provided: OB Delivery
[2023-03-13] MEDS ORDERED: SODIUM CHLORIDE 0.9% PF INJ 10 ML VIAL ONE (13:16)
[2023-03-13] MEDS ORDERED: ePHEDrine sulfate 50 MG/ML AMP ONE (13:16)
[2023-03-13] MEDS ORDERED: fentaNYL citrate PF 100 MCG/2 ML VIAL ONE (13:16)
[2023-03-13] MEDS ORDERED: BUPIVACAINE 0.25% PF 30 ML VIAL ONE (13:17)
[2023-03-13] MEDS ORDERED: LIDOCAINE 2%/EPINEPHRINE 1:200,000 20 ML PF ONE (13:17)
[2023-03-13] MEDS ORDERED: fentaNYL 2MCG/ML ROPIVACAINE 1.25MG/ML 100 ML BAG EPI ONE (13:17)
[2023-03-13] MEDS ORDERED: NALBUPHINE HCL INJ 10 MG/ML AMP IV PRN (14:19)
[2023-03-13] MEDS ORDERED: ePHEDrine sulfate 50 MG/ML AMP IV PRN (14:19)
[2023-03-13] MEDS ORDERED: NALOXONE HCL 0.4 MG/1 ML VIAL/CARP IV PRN (14:19)
[2023-03-13] MEDS ORDERED: diphenhydrAMINE 50 MG/ML VIAL IV PRN (14:19)
[2023-03-13] MEDS ORDERED: NALOXONE HCL 1 MG in SODIUM CHLORIDE 0.9% 1000ML 1,000 ML IV PRN (14:19)
[2023-03-13] MEDS ORDERED: fentaNYL 2MCG/ML ROPIVACAINE 1.25MG/ML 100 ML BAG EPI PRN (14:19)
[2023-03-13] MEDS ORDERED: ONDANSETRON INJ 2 MG/ML 2 ML VIAL IV PRN (14:19)
--- NOTE | 2023-03-13 14:21 | Anesthesiology Consultation ---
Date of Service March 13, 2023 Assessment & Plan Chart Review Chart Review: Patient NOT seen in Pre Admission Testing and Acceptable Risk for Labor Epidural Consults Requested none History Height/Weight Height: 5 ft 7 in Weight: 77.328 kg Allergies Allergy/AdvReac Type Severity Reaction Status Date / Time No Known Allergies Allergy Verified 03/12/23 12:57 Medications Home Medications Medication Instructions Recorded Confirmed Last Taken prenat.vits,lisandra,[id number] 1 tab PO DAILY 08/07/22 03/13/23 03/12/23 omeprazole 40 mg capsule,delayed 40 mg PO DAILY 09/05/22 03/13/23 03/12/23 release ferrous sulfate 325 mg (65 mg 325 mg PO DAILY 03/13/23 03/13/23 03/12/23 iron) tablet (Iron (ferrous sulfate)) Active Medications Generic Name Dose Route Start Last Admin Trade Name Freq PRN Reason Stop Dose Admin Lactated Ringer's 1,000 mls @ 125 mls/hr 03/13/23 07:47 03/13/23 14:16 Lr IV 03/15/23 07:46 999 mls/hr .Q8H PRN Administration L&D Protocol Protocol Oxytocin 30 units in 500 mls @ 10 mls/hr 03/13/23 09:21 03/13/23 12:20 Pitocin IV 03/15/23 09:20 0.6 units/hr .Q24H PRN 10 mls/hr Labor Induction/Augmentation Titration Protocol 0.6 UNITS/HR Past Medical History Medical History Cystic fibrosis carrier GERD (gastroesophageal reflux disease) History of abnormal cervical Pap smear LGSIL - COLPO 2016 History of anemia DURING Mother currently breast-feeding PT CONFIRMS Temporomandibular joint disorder SOMETIMES CLICKS-NO LOCKING Tinnitus Exercise / Class Metabolic Activity II 4-5 Yardwork/Stairs/Walk up hill Past Family History Family History Mother Hypertension Other No family history of adverse response to anesthesia Denies family history of Ovarian cancer Breast cancer Colorectal cancer Past Surgical History Surgical History History of colposcopy History of esophagogastroduodenoscopy (EGD) WITH DILITATION [place] teeth removed Past Anesthesia History No Hx of Anesthesia Complications and No Family Hx of Anesthesia Complications History of PONV No Hx of PONV and No Hx of Motion Sickness Social History Smoking Status: Never smoker Hx Alcohol Use: No Alcohol type: beer and wine alcohol intake frequency: a few times a month Hx Substance Use: No substance use type: does not use Physical Exam Vital Signs Last Vital Signs Temp 36.4 C L 03/13/23 08:49 Pulse 81 03/13/23 14:35 Resp 16 03/13/23 08:49 BP 121/71 03/13/23 14:35 Pulse Ox 93 03/13/23 14:35 Testing Laboratory Results 03/13/23 07:55
--- NOTE | 2023-03-13 15:12 | Labor Progress Brief Note ---
Date of Service March 13, 2023 Subjective comfortable after epidural. Assessment & Plan (1) Encounter for induction of labor: Plan allow to labor down. fetus category one. anticipate . Admission and Anticipated Discharge Date Admission Date: March 13, 2023 Physical Exam Physical Exam: cx--c/c/0, large bulging bag arom--copious clear toco--q2-3min efm--120s with mod variability, accels present, no decels Results & Data Vital Signs (Past 12 Hours) Vital Signs Temp Pulse Resp BP Pulse Ox 03/13/23 08:49 36.4 C L 79 16 100/69 03/13/23 15:09 98 03/13/23 15:09 88 03/13/23 15:08 63 03/13/23 15:08 102/57 L 03/13/23 15:04 98 03/13/23 15:04 85 03/13/23 15:02 84 03/13/23 15:02 94/53 L 03/13/23 14:59 97 03/13/23 14:59 77 03/13/23 14:57 75 03/13/23 14:57 106/56 L 03/13/23 14:54 97 03/13/23 14:54 73 03/13/23 14:49 97 03/13/23 14:49 84 03/13/23 14:49 104/59 L 03/13/23 14:47 88 03/13/23 14:47 108/64 03/13/23 14:45 79 03/13/23 14:45 106/58 L 03/13/23 14:44 99 03/13/23 14:44 78 03/13/23 14:43 74 03/13/23 14:43 104/67 03/13/23 14:42 93 03/13/23 14:42 69 03/13/23 14:41 82 03/13/23 14:41 110/62 03/13/23 14:39 100 03/13/23 14:39 78 03/13/23 14:39 111/58 L 03/13/23 14:38 78 03/13/23 14:38 108/59 L 03/13/23 14:35 93 03/13/23 14:35 81 03/13/23 14:35 121/71 03/13/23 14:34 95 04/21/23 14:34 80 03/13/23 14:33 77 03/13/23 14:33 121/73 03/13/23 14:29 100 03/13/23 14:29 72 03/13/23 14:24 98 03/13/23 14:24 76 03/13/23 14:17 72 03/13/23 14:17 114/72 03/13/23 13:31 70 03/13/23 13:31 111/77 03/13/23 12:31 63 03/13/23 12:31 115/67 03/13/23 11:38 63 03/13/23 11:38 117/78 03/13/23 10:30 68 03/13/23 10:30 115/76 03/13/23 08:14 79 100/69 Coding Level of Care Code None Diagnoses Encounter for induction of labor Z34.90
[2023-03-13] MEDS ORDERED: HYDROCORTISONE ACETATE 25 MG SUPP PR PRN (15:32)
[2023-03-13] MEDS ORDERED: oxyCODONE/ACETAMINOPHEN 5mg/325mg TAB PO PRN (15:32)
[2023-03-13] MEDS ORDERED: DIPHTHERIA/TETANUS/PERTUSSIS 0.5mL SYR/VIAL (Age 7+yrs) IM ONE (15:32)
[2023-03-13] MEDS ORDERED: bisacodyL 10 MG SUPP PR PRN (15:32)
[2023-03-13] MEDS ORDERED: BENZOCAINE 20% AER SPR 82.5 GM CAN EXT PRN (15:32)
[2023-03-13] MEDS ORDERED: ACETAMINOPHEN 325 MG TAB PO PRN (15:32)
--- NOTE | 2023-03-13 15:37 | Delivery Summary ---
Vaginal Delivery Summary Date of Service March 13, 2023 Vaginal Delivery Summary and 2nd Degree LAC Pre-operative Diagnosis: at 41 3/7 weeks postdates induction Post-operative Diagnosis: same Procedure: pitocin induction epidural arom second degree laceration and repair EBL: 300cc Anesthesia: epidural Procedure: The patient presented to labor and delivery for postdates induction. She had a favorable cervix. Started on pitocin and when in a good contractions pattern had epidural. After that was c/c/+1 and arom for copious clear fluid noted. The patient pushed for three contractions to deliver a viable male in narcisa position. The head was delivered with a Ritgen maneuver. The nose and mouth were bulb suctioned on the perineum and the rest of the was then delivered without difficulty. The baby was vigorous. The nose and mouth were again bulb suctioned and the was placed in the maternal abdomen for drying and attention. Cord was clamped and cut at one minute of life. Cord blood and segment obtained. Placenta delivered spontaneous, intact with a three vessel cord. Cervix/sulci/rectum were intact. A second degree perineal laceration was repaired in the normal standard fashion. Hemostasis obtained with dilute pitocin and fundal massage. Apgars were 8/9. Mother and baby doing well at the end of the delivery. [facility] Vaginal Delivery Charge Delivery Type Details: and 2nd Degree LAC
--- NOTE | 2023-03-13 17:32 | Anesthesia Procedure Note ---
Date of Service March 13, 2023 Anesthesia Post Epidural Note Vital Signs Vital Signs: Temp Pulse Resp BP Pulse Ox 36.4 C L 59 L 16 116/55 L 99 03/13/23 08:49 03/13/23 17:03 03/13/23 08:49 03/13/23 17:03 03/13/23 15:44 Notes Mental Status: alert / awake / arousable and participated in evaluation Patient Amnestic to Procedure: No Nausea / Vomiting: adequately controlled Pain: adequately controlled Airway Patency, RR, SpO2: stable & adequate BP & HR: stable & adequate Hydration State: stable & adequate Neuraxial Anesthesia: was administered and sensory block is resolving Anesthetic Complications: no major complications apparent and Pt Satisfied with anesthetic care Epidural: Removed without complications and With tip intact
[2023-03-13] MEDS: IBUPROFEN 600 MG TAB PO PRN ×2 (19:21→23:50)
[2023-03-13] MEDS: DOCUSATE SODIUM 100 MG CAP PO SCH (20:47)
[2023-03-14] MEDS: IBUPROFEN 600 MG TAB PO PRN ×2 (03:41→08:34)
--- NOTE | 2023-03-14 06:22 | Obstetrical Progress Note ---
Date of Service March 14, 2023 Assessment & Plan (1) Encounter for induction of labor: (2) Supervision of normal intrauterine in multigravida: Plan Flora is a 32 y/o female who is PPD #1 following delivery at 41w3d. -Meeting all milestones -Vital signs reviewed and WNL -O+/GBS negative/Rubella immune -Follow up in 6 weeks for appointment -Continue routine care -Planning for d/c at 24hr arnaldo Admission and Anticipated Discharge Date Admission Date: March 13, 2023 Supervising Physician Co-Signing Physician Notes Resident Physician Supervision Note: I interviewed and examined the patient. Discussed with Dr. Velazquez and agree with findings and plan as documented in the note. Any exceptions or clarifications are listed here: Doing well. Routine care. Desires d/c at 24 hours. Documented By: Nati Rueda MD, FACOG Subjective Flora is a 32 y/o female who is PPD #1 following delivery at 41w3d. She reports feeling well overall this morning. Notes abdominal cramping but pain well managed on analgesics. Voiding without issue. Tolerating meals overnight and able to ambulate some. Has some persistent lochia with some improvement this morning. Currently breast feeding. Review of Systems Constitutional: no fever, no chills and no sweats Respiratory: no cough, no dyspnea and no wheezing Cardiovascular: no chest pain, no palpitations and no calf pain Genitourinary: no dysuria Neurologic: no headache(s) Physical Exam Constitutional: WD/WN, vitals as above no acute distress Respiratory: no respiratory distress Auscultation: lungs clear to auscultation bilaterally; no rales, no rhonchi and no wheezes Cardiovascular: RRR, no murmur, no edema Extremities: no calf tenderness and no edema Negative Rustam's sign bilaterally. Gastrointestinal (Abdomen): Inspection/Auscultation: normal bowel sounds Genitourinary: Uterine fundus firm, palpable below the umbilicus. Results & Data Vital Signs (Past 12 Hours) Vital Signs Temp Pulse Resp BP Pulse Ox O2 Del Method 03/14/23 03:30 36.9 C 68 16 110/60 97 Room Air 03/13/23 23:45 36.8 C 63 16 114/72 98 Room Air 03/13/23 18:40 37.2 C 63 20 122/81 99 Room Air Resident Activity Tracking Resident Involvement: Resident Care Provided Care Provided: OB Delivery
[2023-03-14 07:13] LABS: Hemoglobin 10.7 g/dl (12.0-16.0); Mean Corpuscular Hemoglobin 24.3 pg (25.0-34.0); Mean Corpuscular Hgb Conc 30.6 g/dL (32.0-36.0); Mean Corpuscular Volume 79.4 fL (80.0-100.0); Mean Platelet Volume 10.5 fL (9.4-12.4); Platelet Count 246 K/uL (130-400); RDW Coefficient of Variation 19.9 % (11.5-14.5); RDW Standard Deviation 56.5 fL (36.4-46.3); Red Blood Count 4.41 M/uL (4.20-5.40); White Blood Count 10.66 K/ul (4.8-10.8)
[2023-03-14] MEDS ORDERED: PRENATAL VITAMIN 1 TAB PO SCH (08:00)
[2023-03-14] MEDS: DOCUSATE SODIUM 100 MG CAP PO SCH (08:34)
[2023-03-14] MEDS ORDERED: bisacodyL 5 MG TABEC PO SCH (20:00)
== END 2023-03-14 18:28 | disposition home or self-care (01) | DRG 807 ==
LOC: 4S1 07:37 → 4E2 19:12